=== PATIENT | female | born 1970 | race Caucasian/White ===

== ENCOUNTER 2020-02-01 01:45 | Emergency (ER) | payer OTHER ==
[~2020-02-01] VITALS: Ht 152.4 cm; Wt 93.9 kg
[2020-02-01 01:57] VITALS: BP_SYST 169
[2020-02-01] MEDS ORDERED: MORPHINE 4 MG/ML INJ. SYRINGE IM ONE (02:15)
[2020-02-01] MEDS ORDERED: METOCLOPRAMIDE HCL 10 MG/2 ML VIAL IM ONE (02:15)
[2020-02-01] MEDS ORDERED: BALANCED SALT IRRIG SOLN 15 ML IO ONE ×2 (02:29→05:45)
[2020-02-01 03:15] LABS: BASOPHILS % (AUTO) 0.4 % (0.0-2.0); EOSINOPHILS # (AUTO) 0.1 K/uL (0.0-0.4); EOSINOPHILS % (AUTO) 1.2 % (0.0-4.0); HEMATOCRIT 37.5 % (36-48); HEMOGLOBIN 11.8 g/dL (12.0-16.0); LYMPHOCYTES # (AUTO) 3.8 K/uL (1.0-5.5); LYMPHOCYTES % (AUTO) 43.9 % (20.5-51.5); MEAN CORPUSCULAR HEMOGLOBIN 26 pg (27-31); MEAN CORPUSCULAR HGB CONC 32 % (32-36); MEAN CORPUSCULAR VOLUME 82 fL (79.0-98.0); MONOCYTES # (AUTO) 0.6 K/uL (0.0-1.0); MONOCYTES % (AUTO) 6.7 % (1.7-9.3); NEUTROPHILS # (AUTO) 4.2 K/uL (1.8-7.7); NEUTROPHILS % (AUTO) 47.8 % (40.0-70.0); PLATELET COUNT (AUTO) 448 K/uL (130-430); RED BLOOD CELL COUNT(AUTO) 4.58 MIL/uL (4.2-6.2); RED CELL DISTRIBUTION WIDTH 16.2 % (9.0-15.0); WHITE BLOOD COUNT (AUTO) 8.7 K/uL (4.8-10.8)
[2020-02-01 03:20] LABS: CALCIUM 8.1 mg/dL (8.4-11.0); CREATININE 0.59 mg/dL (0.55-1.30); POTASSIUM 3.7 mmol/L (3.5-5.1)
[2020-02-01 03:36] LABS: ALBUMIN 3.6 g/dL (3.4-4.8); FREE T4 (FREE THYROXINE) 0.8 ng/dL (0.6-1.6); THYROID STIMULATING HORMONE 17.84 uIu/mL (0.34-4.82); TOTAL BILIRUBIN 0.4 mg/dL (0.0-1.0)
[2020-02-01 05:39] VITALS: BP_SYST 130
== END 2020-02-01 05:39 | disposition home or self-care (01) ==
LOC: SED 01:45
DX: G51.0 Bell's palsy (principal); R51 Headache
CPT/HCPCS: 36415; 70450; 70486; 80053; 84439; 84443; 85025; 96372; 99285; J2270; J2765